=== PATIENT | male | born 1985 | race Two or more races ===

== ENCOUNTER 2023-10-14 07:28 | Emergency (ER) | payer OTHER ==
[~2023-10-14] VITALS: Ht 170.2 cm; Wt 59.0 kg
[2023-10-14] MEDS ORDERED: PROCHLORPERAZINE EDISYLATE 10 MG/2 ML VIAL ONE (07:45)
[2023-10-14] MEDS ORDERED: HYDROMORPHONE 2 MG/1 ML DISP.SYRIN ONE ×2 (07:46→09:22)
[2023-10-14] MEDS: HYDROMORPHONE 1 MG/1 ML DISP.SYRIN IV ONE ×2 (07:53→09:25)
[2023-10-14] MEDS: PROCHLORPERAZINE EDISYLATE 10 MG/2 ML VIAL IV ONE (07:53)
[2023-10-14] MEDS: KETOROLAC TROMETHAMINE 30 MG INJ IVP ONE (07:54)
[2023-10-14] MEDS: IV NORMAL SALINE 1000 ML BAG IV ONE (07:54)
[2023-10-14] MEDS ORDERED: KETOROLAC TROMETHAMINE 30 MG INJ ONE (07:55)
[2023-10-14 08:09] LABS: BASOPHILS # (AUTO) 0.1 K/UL (0.0-0.2); BASOPHILS % (AUTO) 1.2 % (0.0-2.0); EOSINOPHILS # (AUTO) 0.2 K/uL (0.0-0.7); EOSINOPHILS % (AUTO) 2.2 % (0.0-7.0); HEMATOCRIT 38.3 % (36.7-47.1); HEMOGLOBIN 12.9 g/dL (12.5-16.3); LYMPHOCYTES # (AUTO) 2.5 K/uL (0.8-4.8); LYMPHOCYTES % (AUTO) 30.4 % (20.5-51.5); MEAN CORPUSCULAR HEMOGLOBIN 27.1 uug (23.8-33.4); MEAN CORPUSCULAR HGB CONC 34 g/dL (32.5-36.3); MEAN CORPUSCULAR VOLUME 80.4 fL (73.0-96.2); MONOCYTES # (AUTO) 0.6 K/uL (0.1-1.30); MONOCYTES % (AUTO) 6.9 % (0.0-11.0); NEUTROPHILS # (AUTO) 4.9 K/uL (1.8-8.9); NEUTROPHILS % (AUTO) 59.3 % (38.5-71.5); PLATELET COUNT (AUTO) 254 K/uL (152-348); RED BLOOD CELL COUNT(AUTO) 4.77 MIL/uL (4.06-5.63); RED CELL DISTRIBUTION WIDTH 13.8 % (12.1-16.2); WHITE BLOOD COUNT (AUTO) 8.2 K/uL (3.6-10.2)
[2023-10-14 08:11] LABS: DIFFERENTIAL COMMENT 1
[2023-10-14 08:16] LABS: CALCIUM 9.4 mg/dL (8.5-10.1); POTASSIUM 3.7 mmol/L (3.5-5.1)
[2023-10-14 08:21] LABS: ALBUMIN 4.2 g/dL (3.4-5.0); BILIRUBIN,DIRECT 0.2 mg/dL (0.0-0.2); TOTAL PROTEIN, SERUM 7.4 g/dL (6.4-8.2)
[2023-10-14 10:16] LABS: *BILIRUBIN,URIN NEGATIVE (NEGATIVE); *CLARITY,URINE CLEAR (CLEAR); *COLOR,URINE YELLOW (YELLOW); *KETONES,URINE 3+ (NEGATIVE); *PROTEIN,URINE NEGATIVE (NEGATIVE); *UROBILINOGEN,URINE 0.2 E.U./dl (NORMAL); LEUKOCYTE ESTERASE ,URINE NEGATIVE (NEGATIVE); NITRITE, URINE NEGATIVE (NEGATIVE); PH,URINE 5.5 (5.0-8.0); UGLUCOSE NEGATIVE (NEGATIVE)
[2023-10-14 10:18] LABS: *BLOOD, URINE TRACE (NEGATIVE)
[2023-10-14] MEDS: IV NS 1000 ML 1,000 ML IV ONE (10:45)
[2023-10-14 10:51] LABS: BACTERIA,URINE NONE SEEN /HPF (NONE SEEN); MUCUS,URINE MODERATE /LPF (0-FEW); RBC,URINE NONE SEEN /HPF (0-3); SQUAMOUS EPITHELIAL CELL,UR FEW /HPF (NONE SEEN); WBC,URINE 0-3 /HPF (0-3)
[2023-10-14] MEDS ORDERED: HYDR-3980 PO (14:23)
[2023-10-14] MEDS ORDERED: KETO10TA2 PO (14:23)
[2023-10-14] MEDS ORDERED: PROC10TA29 PO (14:23)
[2023-10-14 14:41] VITALS: BP 120/66; O2SAT 97
[2023-10-15] MEDS ORDERED: HYDR-3980 PO (11:04)
== END 2023-10-14 14:50 | disposition home or self-care (01) ==
LOC: ER 07:28
DX: R31.29 Other microscopic hematuria (principal); R10.9 Unspecified abdominal pain; Z79.899 Other long term (current) drug therapy; Z88.0 Allergy status to penicillin
CPT/HCPCS: 99285; 96374; 96361; 96375; 80076; 80048; 81001; 85025; 36415; 93005; 74018; 76775; 96376; J1885; J0780; J1170 ×2; A4606; A4663